=== PATIENT | female | born 1960 | race Caucasian/White ===

== ENCOUNTER 2023-10-08 09:23 | Day surgery (SDC) | payer BC ==
[2023-10-08] MEDS ORDERED: Depo-Medrol 40 MG/ML IM ONE (09:24)
[2023-10-08] MEDS ORDERED: BUPIVACAINE 0.5% VIAL IJ ONE (09:24)
[2023-10-08] MEDS ORDERED: DIPRIVAN 200 MG/20 ML IV ONE (11:28)
--- NOTE | 2023-10-08 12:07 | XRAY ---
Indication: Bilateral L3-L5 MBB. Intraoperative fluoroscopy provided for 33 seconds. Single digital spot image submitted for interpretation demonstrates posterior needle tips projecting over the expected left and right L3-L5 nerve roots. Correlate with intraoperative findings/report.
--- NOTE | 2023-10-08 12:27 | XRAY ---
33 seconds of fluoroscopy was used in surgery for a bilateral L3-L5 MBB.
[2023-10-08] MEDS ORDERED: Lactated Ringers 1,000 ML IV ONE (14:59)
== END 2023-10-08 11:56 | disposition home or self-care (01) ==
LOC: SDC-PAIN 09:23
PROVIDERS: ATTEND Psychiatry & Neurology Pain Medicine
DX: M47.816 Spondylosis without myelopathy or radiculopathy, lumbar region (principal)
CPT/HCPCS: 64493; 64494; 72020; 77002; J1030; J2704

== ENCOUNTER 2023-10-29 09:55 | Observation (INO) | payer BC ==
--- NOTE | 2023-10-29 10:30 | ERPHSYRPT ---
- History of Present Illness Time Seen by Provider: 10/29/23 10:24 Historian: patient Patient Subjective Stated Complaint: Pt c/o of off and on chest pain since Triage Nursing Assessment: Pt brought self to the ER, hypertensive, rates chest pressure as 3/10, has aortic insufficiency and is having an echo on Friday, pain is in the medial chest, denies N&V, did have pain in the left shoulder the other day but she had been doing a lot of work so she thought it was due to that, pulses normal, skin n/w/d, no difficulty breathing, doesn't appear to be in any distress Physician History: Patient is 63-year-old female presents to our ED as a referral from [facility] for evaluation of chest pain. Patient reports she has been experiencing significant chest pain intermittently over the past 6 days. Patient rates her pain 6 out of 10. Pain is substernal tends to radiate to the left shoulder. No associated nausea vomiting or diaphoresis. Patient reports that she has an extensive cardiac family history. No trauma no fever. Symptoms are moderate in intensity. No specific worsening or improving factors. Patient voices no other complaints or concerns at this time. Portions of this note were created with voice recognition technology. There may be grammatical, spelling, punctuation or sound alike errors Timing/Duration: day(s) (6 days) Activities at Onset: none Quality: aching Location: substernal Chest Pain Radiation: arm (Left shoulder) Severity of Pain-Max: moderate Severity of Pain-Current: mild Modifying Factors: Improves With: nothing Associated Symptoms: denies symptoms Prior Chest Pain/Cardiac Workup: no prior chest pain Nitro Today/Relief: no nitro taken today Aspirin Treatment Today: no aspirin today Allergies/Adverse Reactions: atorvastatin [From Lipitor] Allergy (Verified 10/29/23 10:11) doxycycline Allergy (Verified 10/29/23 10:11) Home Medications: Celecoxib 200 mg PO BID 10/29/23 [History] Hydrocortisone [Cortef] 5 mg PO UD 10/29/23 [History] Levothyroxine Sodium 75 mcg PO DAILY 10/29/23 [History] Liothyronine Sodium 25 mcg PO DAILY 10/29/23 [History] Lisinopril 5 mg [Zestril 5 MG] 5 mg PO DAILY 10/29/23 [History] Omeprazole 40 mg PO BID 10/29/23 [History] Onabotulinumtoxina [Botox] 100 unit IJ UD 10/29/23 [History] Oxcarbazepine [Oxtellar Xr] 600 mg PO DAILY 10/29/23 [History] Propranolol HCl [Propranolol HCl ER] 60 mg PO DAILY 10/29/23 [History] Rimegepant Sulfate [Nurtec Odt] 75 mg PO UD 10/29/23 [History] Solriamfetol HCl [Sunosi] 150 mg PO DAILY 10/29/23 [History] Temazepam 30 mg PO DAILY 10/29/23 [History] levETIRAcetam [Levetiracetam] 1,000 mg PO BID 10/29/23 [History] methocarbamoL [Methocarbamol] 750 mg PO TID 10/29/23 [History] Hx Influenza Vaccination/Date Given: No Hx Pneumococcal Vaccination/Date Given: No Travel Risk - International Travel Have you traveled outside of the country in past 3 weeks: No - Coronavirus Screening Are you exhibiting any of the following symptoms?: No Close contact with a COVID-19 positive Pt in past 14-21 Days: No - Vaccine Status Have you recieved a Covid-19 vaccination: Yes 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 - Vaccination Dates Date of 2cond Vaccination (if applicable): 2020 - Review of Systems Constitutional: No Symptoms, No Fever, No Chills Eyes: No Symptoms Ears, Nose, & Throat: No Symptoms Respiratory: No Symptoms, No Cough, No Dyspnea Cardiac: No Symptoms, No Chest Pain, No Edema, No Syncope Abdominal/Gastrointestinal: No Symptoms, No Abdominal Pain, No Nausea, No Vomiting, No Diarrhea Genitourinary Symptoms: No Symptoms, No Dysuria Musculoskeletal: No Symptoms, No Back Pain, No Neck Pain Skin: No Symptoms, No Rash Neurological: No Symptoms, No Dizziness, No Focal Weakness, No Sensory Changes Psychological: No Symptoms Endocrine: No Symptoms Hematologic/Lymphatic: No Symptoms Immunological/Allergic: No Symptoms All Other Systems: Reviewed and Negative - Past Medical History Pertinent Past Medical History: Yes Neurological History: Migraines, Seizures Cardiac History: No Pertinent History Respiratory History: Sleep Apnea Endocrine Medical History: Other Musculoskeletal History: Degenerative Disk Disease, Osteoarthritis Other Medical History: 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 gall bladder removed 2020. adrenal insufficiency, hx of bladder sx, Right Carpal tunnel decompression, Left thumb tendon release., graves disease, lyme disease - Past Surgical History Past Surgical History: Yes Gastrointestinal: Cholecystectomy Musculoskeletal: Orthopedic Surgery Other Surgical History: ulnar nerve/carpal tunnel/trigger finger release - Social History Smoking Status: Never smoker Exposure to second hand smoke: No Drug Use: none Patient Lives Alone: No - Nursing Vital Signs Nursing Vital Signs: Initial Vital Signs Temperature 97.5 F 10/29/23 09:59 Pulse Rate 78 10/29/23 09:59 Respiratory Rate 20 10/29/23 09:59 Blood Pressure 194/80 10/29/23 09:59 O2 Sat by Pulse Oximetry 97 10/29/23 09:59 Pain Scale Pain Intensity 3 - Physical Exam General Appearance: no apparent distress, alert Eye Exam: PERRL/EOMI, eyes nml inspection Ears, Nose, Throat Exam: normal ENT inspection, TMs normal, pharynx normal, moist mucous membranes Neck Exam: normal inspection, non-tender, supple, full range of motion Respiratory Exam: normal breath sounds, lungs clear, airway intact, No respiratory distress Cardiovascular Exam: regular rate/rhythm, normal heart sounds, normal peripheral pulses Gastrointestinal/Abdomen Exam: soft, No tenderness, No mass Back Exam: normal inspection, No CVA tenderness, No vertebral tenderness Extremity Exam: normal inspection, normal range of motion Neurologic Exam: alert, oriented x 3, cooperative, normal mood/affect, sensation nml, No motor deficits Skin Exam: normal color, warm, dry Lymphatic Exam: No adenopathy SpO2 Interpretation: normal SpO2: 97 O2 Delivery: Room Air - Course Nursing assessment & vital signs reviewed: Yes EKG Interpreted by Me: RATE (73), Sinus Rhythm, NORMAL AXIS, NORMAL INTERVALS - Radiology Exams Chest X-ray Interpretation: Interpreted by me (No acute findings) Ordered Tests: Active Orders 24 hr Category Date Time Status Director Of Email Marketing STAT Care 10/29/23 10:26 Active EKG-ER Only STAT Care 10/29/23 10:26 Active IV Insertion STAT Care 10/29/23 10:26 Active Pulse Oximetry (ED) STAT Care 10/29/23 10:26 Active CHEST 1 VIEW (PORTABLE) Stat Exams 10/29/23 12:21 Completed CBC W DIFF Stat Lab 10/29/23 10:30 Completed CMP Stat Lab 10/29/23 10:30 Completed D-DIMER QUANTITATIVE Stat Lab 10/29/23 10:30 Completed TROPONIN Q4H Lab 10/29/23 10:30 Completed TROPONIN Q4H Lab 10/29/23 14:30 Ordered TROPONIN Q4H Lab 10/29/23 18:30 Ordered Transfer Order Routine Transfer 10/29/23 Ordered Medication Summary Discontinued Medications Generic Name Dose Route Start Last Admin Trade Name Freq PRN Reason Stop Dose Admin Aspirin 324 mg 10/29/23 10:31 10/29/23 10:47 Aspirin 81 Mg Tab.Chew PO 10/29/23 10:32 324 mg STAT ONE Administration Aspirin Confirm 10/29/23 10:44 Aspirin 81 Mg Tab.Chew Administered 10/29/23 10:45 Dose 324 mg .ROUTE .STK-MED ONE Nitroglycerin 1 gm 10/29/23 10:31 10/29/23 10:47 Nitroglycerin 1 Gm Packet TOP 10/29/23 10:32 1 gm STAT ONE Administration Nitroglycerin Confirm 10/29/23 10:44 Nitroglycerin 1 Gm Packet Administered 10/29/23 10:45 Dose 1 gm .ROUTE .STK-MED ONE Ondansetron HCl 4 mg 10/29/23 11:17 10/29/23 11:19 Ondansetron Hcl 4 Mg/2 Ml Vial IV 10/29/23 11:18 4 mg STAT ONE Administration Ondansetron HCl Confirm 10/29/23 11:18 Ondansetron Hcl 4 Mg/2 Ml Vial Administered 10/29/23 11:19 Dose 4 mg .ROUTE .STK-MED ONE Lab/Rad Data: Laboratory Result Diagrams 10/29/23 10:30 10/29/23 10:30 Laboratory Results 10/29/23 10/29/23 10/29/23 Range/Units 10:30 10:30 10:30 WBC (4.0-10.5) x10^3/uL RBC (4.1-5.4) x10^6/uL Hgb (12.0-16.0) g/dL Hct (35-47) % MCV (78-100) fL MCH (26-32) pg MCHC (32-36) g/dL RDW (11.5-14.0) % Plt Count (150-450) x10^3/uL MPV (7.5-11.0) fL Gran % (36.0-66.0) % Immature Gran % (Auto) (0.00-0.4) % Nucleat RBC Rel Count (0.00-0.1) % Eos # (Auto) (0-0.5) x10^3/uL Immature Gran # (Auto) (0.00-0.03) x10^3u/L Absolute Lymphs (auto) (1.0-4.6) x10^3/uL Absolute Monos (auto) (0.0-1.3) x10^3/uL Absolute Nucleated RBC (0.00-0.01) x10^3u/L Lymphocytes % (24.0-44.0) % Monocytes % (0.0-12.0) % Eosinophils % (0.00-5.0) % Basophils % (0.0-0.4) % Absolute Granulocytes (1.4-6.9) x10^3/uL Basophils # (0-0.4) x10^3/uL D-Dimer 0.29 (0.0-0.50) mg/L Sodium 140 (137-145) mmol/L Potassium 3.8 (3.5-5.1) mmol/L Chloride 107 (98-107) mmol/L Carbon Dioxide 27 (22-30) mmol/L Anion Gap 9.9 (5-15) MEQ/L BUN 12 (7-17) mg/dL Creatinine 0.64 (0.52-1.04) mg/dL Estimated GFR 100.5 ML/MIN Glucose 94 (74-106) mg/dL Calcium 9.0 (8.4-10.2) mg/dL Total Bilirubin 0.30 (0.2-1.3) mg/dL AST 26 (14-36) U/L ALT 25 (0-35) U/L Alkaline Phosphatase 127 H (38-126) U/L Troponin I < 0.012 (0.000-0.034) ng/mL Serum Total Protein 7.0 (6.3-8.2) g/dL Albumin 3.9 (3.5-5.0) g/dL 12// Range/Units 10:30 WBC 5.2 (4.0-10.5) x10^3/uL RBC 4.74 (4.1-5.4) x10^6/uL Hgb 13.4 (12.0-16.0) g/dL Hct 42.2 (35-47) % MCV 89.0 (78-100) fL MCH 28.3 (26-32) pg MCHC 31.8 L (32-36) g/dL RDW 12.8 (11.5-14.0) % Plt Count 121 L (150-450) x10^3/uL MPV 12.9 H (7.5-11.0) fL Gran % 58.7 (36.0-66.0) % Immature Gran % (Auto) 0.4 (0.00-0.4) % Nucleat RBC Rel Count 0.0 (0.00-0.1) % Eos # (Auto) 0.08 (0-0.5) x10^3/uL Immature Gran # (Auto) 0.02 (0.00-0.03) x10^3u/L Absolute Lymphs (auto) 1.56 (1.0-4.6) x10^3/uL Absolute Monos (auto) 0.46 (0.0-1.3) x10^3/uL Absolute Nucleated RBC 0.00 (0.00-0.01) x10^3u/L Lymphocytes % 30.1 (24.0-44.0) % Monocytes % 8.9 (0.0-12.0) % Eosinophils % 1.5 (0.00-5.0) % Basophils % 0.4 (0.0-0.4) % Absolute Granulocytes 3.05 (1.4-6.9) x10^3/uL Basophils # 0.02 (0-0.4) x10^3/uL D-Dimer (0.0-0.50) mg/L Sodium (137-145) mmol/L Potassium (3.5-5.1) mmol/L Chloride (98-107) mmol/L Carbon Dioxide (22-30) mmol/L Anion Gap (5-15) MEQ/L BUN (7-17) mg/dL Creatinine (0.52-1.04) mg/dL Estimated GFR ML/MIN Glucose (74-106) mg/dL Calcium (8.4-10.2) mg/dL Total Bilirubin (0.2-1.3) mg/dL AST (14-36) U/L ALT (0-35) U/L Alkaline Phosphatase (38-126) U/L Troponin I (0.000-0.034) ng/mL Serum Total Protein (6.3-8.2) g/dL Albumin (3.5-5.0) g/dL - Progress Progress: improved Air Movement: good Progress Note: Case discussed with DrDarius: At 12:[address] Quispe Accepts [facility]. Plan of care discussed with patient. She agrees to admission to [facility] for further evaluation and treatment. Heart score 4 Portions of this note were created with voice recognition technology. There may be grammatical, spelling, punctuation or sound alike errors 10/29/23 13:05 63-year-old female presents to our ED for evaluation of chest pain. Patient has aortic insufficiency. Initial workup negative. D-dimer negative. CBC CMP nonremarkable. EKG normal sinus rhythm. Patient received aspirin and nitro in our ED. Case discussed with who accepts admission to observation. Portions of this note were created with voice recognition technology. There may be grammatical, spelling, punctuation or sound alike errors Complexity problem addressed is moderate acute complicated No critical care time Complex of data reviewed and analyzed is extensive. Test ordered test reviewed. Results analyzed and correlated clinically. Management discussed with hospitalist Dr. Quispe who accepts admission at 12:58 PM. Risk of complication and or risk of morbidity/mortality of patient management is high. Patient requires hospitalization for further evaluation and treatment. Vital stable. Time spent to admit patient is approximately 15 minutes. Plan of care established for shared decision making. No social determinants of health present impede follow-up. Portions of this note were created with voice recognition technology. There may be grammatical, spelling, punctuation or sound alike errors 10/29/23 13:07 10/29/23 13:09 Blood Culture(s) Obtained: No Antibiotics given: No Discussed with : Other (Brittaney) Will see patient in: hospital (observation) Counseled pt/family regarding: lab results, diagnosis, rad results - Departure Departure Disposition: Observation Clinical Impression: Chest pain, ACS (acute coronary syndrome) Condition: Stable Critical Care Time: No Referrals: VIGNESH BONE [Primary Care Provider] - Follow up/PCP as directed
[2023-10-29] MEDS ORDERED: NITRO-BID 2% UD PACKETS TOP ONE (10:31)
[2023-10-29] MEDS ORDERED: BABY ASPIRIN 81 MG CHEW PO ONE (10:31)
[2023-10-29] MEDS ORDERED: NITRO-BID 2% UD PACKETS ONE (10:44)
[2023-10-29] MEDS ORDERED: BABY ASPIRIN 81 MG CHEW ONE (10:44)
[2023-10-29 10:51] LABS: Absolute Neutrophil Ct (ANC) 3.05 x10^3/uL (1.4-6.9); BASOPHIL % 0.4 % (0.0-0.4); Basophil (Absolute #) 0.02 x10^3/uL (0-0.4); Eosinophil % 1.5 % (0.00-5.0); Eosinophil (Absolute #) 0.08 x10^3/uL (0-0.5); Hematocrit 42.2 % (35-47); Hemoglobin 13.4 g/dL (12.0-16.0); IMMATURE GRAN # 0.02 x10^3u/L (0.00-0.03); IMMATURE GRAN % 0.4 % (0.00-0.4); Lymphocyte (Absolute #) 1.56 x10^3/uL (1.0-4.6); Lymphocytes % 30.1 % (24.0-44.0); Mean Corpuscular Hemoglobin 28.3 pg (26-32); Mean Corpuscular Hgb Concent. 31.8 g/dL (32-36); Mean Platelet Volume 12.9 fL (7.5-11.0); Monocyte (Absolute #) 0.46 x10^3/uL (0.0-1.3); Monocytes % 8.9 % (0.0-12.0); Neutrophil % 58.7 % (36.0-66.0); Platelet Count 121 x10^3/uL (150-450); Red Blood Count 4.74 x10^6/uL (4.1-5.4); Red Cell Distribution Width 12.8 % (11.5-14.0); White Blood Count 5.2 x10^3/uL (4.0-10.5)
[2023-10-29 11:06] LABS: ALBUMIN 3.9 g/dL (3.5-5.0); ANION GAP 9.9 MEQ/L (5-15); BILIRUBIN,TOTAL 0.3 mg/dL (0.2-1.3); Creatinine 1 0.64 mg/dL (0.52-1.04); EST GLOMERULAR FILTRATION RATE 100.5 ML/MIN; Potassium 3.8 mmol/L (3.5-5.1)
[2023-10-29] MEDS ORDERED: Zofran 4 MG/2 ML VIAL IV ONE (11:17)
[2023-10-29] MEDS ORDERED: Zofran 4 MG/2 ML VIAL ONE (11:18)
--- NOTE | 2023-10-29 12:51 | XRAY ---
Indication: Chest pain 1 week. Comparison: None Portable chest inflated and clear. Heart and mediastinal structures within normal limits. Bony thorax intact with osteopenia, mild degenerative changes, and lower cervical fusion hardware. Impression: Nonacute chest with chronic bony findings.
[2023-10-29 13:17] LABS: INFLUENZA A NEGATIVE (NEGATIVE); INFLUENZA B NEGATIVE (NEGATIVE); SARS-CoV-2 Xpert Express NEGATIVE (NEGATIVE)
[2023-10-29 13:23] LABS: RESPIRATORY SYNCTIAL VIRUS POSITIVE (NEGATIVE)
[2023-10-29] MEDS ORDERED: Zofran 4 MG/2 ML VIAL IV PRN (13:56)
[2023-10-29] MEDS ORDERED: Nitrostat 0.4 MG Tablet SL PRN (14:02)
--- NOTE | 2023-10-29 14:03 | PCM.HP ---
History of Present Illness - Chief Complaint Chief Complaint: Chest pain/ACS Date: 10/29/23 History of Present Illness: is a 63 year old female with a pmhx of aortic insufficiency (workup pending, echo scheduled for 10/31/23), migraines, seizures, DDD, OA, graves disease, lyme disease, and EMMETT who presented to ED 10/29/23 with complaints of chest pain and pressure. She reports that the pain started approximately six days ago. Pain is substernal with radiation to the left shoulder region last evening but not today. The pain has been intermittent over the past six days. She states the pain was constant last night but has been intermittent over the past six days normally lasting about 20 mins each episode. Prior to arrival pain was about 8/10, on arrival 5/10 and during interview pain has resolved. She describes the pain as pressure-like in characteristic, with no aggravating/relieving factors. She does report that she has been having flu-like symptoms since 10/26/23 with coughing, wheezing, chest tightness, sweats/chills. She feels that her coughing may have exacerbated her chest pain. Upon presentation, patient hypertensive with bp 194/80, otherwise vitals unremarkable. CXR with no cardiopulmonary processes. EKG NS with no ST eleva tion/deviations. Lab findings showing positive RSV, otherwise unremarkable. Ddimer is normal. Initial troponin is normal. Aspirin, nitro, and zofran given in ED. - Review of Systems Constitutional: Weakness Eyes: No Symptoms Ears, Nose, & Throat: Throat Pain Respiratory: Cough, Short Of Breath Cardiac: Chest Pain Abdominal/Gastrointestinal: Nausea Genitourinary Symptoms: No Symptoms Musculoskeletal: No Symptoms Skin: No Symptoms Neurological: No Symptoms Psychological: No Symptoms Endocrine: No Symptoms Hematologic/Lymphatic: No Symptoms Immunological/Allergic: No Symptoms Medications & Allergies Home Medications: Home Medication List Celecoxib 200 mg PO BID 10/29/23 [History Confirmed 10/29/23] Hydrocortisone [Cortef] 5 mg PO UD 10/29/23 [History Confirmed 10/29/23] Levothyroxine Sodium 75 mcg PO DAILY 10/29/23 [History Confirmed 10/29/23] Liothyronine Sodium 25 mcg PO DAILY 10/29/23 [History Confirmed 10/29/23] Lisinopril 5 mg [Zestril 5 MG] 5 mg PO DAILY 10/29/23 [History Confirmed 10/29/23] Omeprazole 40 mg PO BID 10/29/23 [History Confirmed 10/29/23] Onabotulinumtoxina [Botox] 100 unit IJ UD 10/29/23 [History Confirmed 10/29/23] Oxcarbazepine [Oxtellar Xr] 600 mg PO DAILY 10/29/23 [History Confirmed 10/29/23] Propranolol HCl [Propranolol HCl ER] 60 mg PO DAILY 10/29/23 [History Confirmed 10/29/23] Rimegepant Sulfate [Nurtec Odt] 75 mg PO UD 10/29/23 [History Confirmed 10/29/23] Solriamfetol HCl [Sunosi] 150 mg PO DAILY 10/29/23 [History Confirmed 10/29/23] Temazepam 30 mg PO DAILY 10/29/23 [History Confirmed 10/29/23] levETIRAcetam [Levetiracetam] 1,000 mg PO BID 10/29/23 [History Confirmed 10/29/23] methocarbamoL [Methocarbamol] 750 mg PO TID 10/29/23 [History Confirmed 10/29/23] Allergies/Adverse Reactions: Allergies Allergy/AdvReac Type Severity Reaction Status Date / Time atorvastatin [From Lipitor] Allergy Verified 10/29/23 10:11 doxycycline Allergy Verified 10/29/23 10:11 - Past Medical History Past Medical History: Yes Neurological History: Migraines, Seizures Cardiac History: No Pertinent History Respiratory History: Sleep Apnea Endocrine Medical History: Other Musculoskelatal History: Degenerative Disk Disease, Osteoarthritis Comment: 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 gall bladder removed 2020. adrenal insufficiency, hx of bladder sx, Right Carpal tunnel decompression, Left thumb tendon release., graves disease, lyme disease - Past Surgical History Past Surgical History: Yes GI Surgical History: Cholecystectomy Musculskeletal Surgical Hx: Orthopedic Surgery Other Surgical History: ulnar nerve/carpal tunnel/trigger finger release - Social History Smoking Status: Never smoker Exposure to second hand smoke: No Alcohol: None Drug Use: none - Physical Exam Vital Signs: Vital Signs - 24 hr Temp Pulse Resp BP BP Pulse Ox 10/29/23 13:15 97 10/29/23 13:00 81 18 146/78 93 L 10/29/23 12:30 78 17 140/73 95 10/29/23 12:00 80 12 146/82 95 10/29/23 11:30 80 13 155/91 10/29/23 11:00 75 13 153/93 95 10/29/23 10:50 98 10/29/23 10:30 78 17 165/110 96 10/29/23 10:01 80 16 194/80 97 10/29/23 09:59 97.5 F 78 20 194/80 97 General Appearance: no apparent distress Neurologic Exam: alert, oriented x 3, cooperative Eye Exam: PERRL/EOMI Ears, Nose, Throat Exam: normal ENT inspection Neck Exam: normal inspection Respiratory Exam: wheezing Cardiovascular Exam: regular rate/rhythm, normal heart sounds Gastrointestinal/Abdomen Exam: soft, normal bowel sounds Pelvic Exam: not done Rectal Exam: deferred Back Exam: normal inspection Extremity Exam: normal inspection Skin Exam: normal color Results - Labs Lab/Micro Results: Lab Results-Last 24 Hours 10/29/23 10/29/23 10/29/23 Range/Units 10:30 10:30 10:30 WBC 5.2 (4.0-10.5) x10^3/uL RBC 4.74 (4.1-5.4) x10^6/uL Hgb 13.4 (12.0-16.0) g/dL Hct 42.2 (35-47) % MCV 89.0 (78-100) fL MCH 28.3 (26-32) pg MCHC 31.8 L (32-36) g/dL RDW 12.8 (11.5-14.0) % Plt Count 121 L (150-450) x10^3/uL MPV 12.9 H (7.5-11.0) fL Gran % 58.7 (36.0-66.0) % Immature Gran % (Auto) 0.4 (0.00-0.4) % Nucleat RBC Rel Count 0.0 (0.00-0.1) % Eos # (Auto) 0.08 (0-0.5) x10^3/uL Immature Gran # (Auto) 0.02 (0.00-0.03) x10^3u/L Absolute Lymphs (auto) 1.56 (1.0-4.6) x10^3/uL Absolute Monos (auto) 0.46 (0.0-1.3) x10^3/uL Absolute Nucleated RBC 0.00 (0.00-0.01) x10^3u/L Lymphocytes % 30.1 (24.0-44.0) % Monocytes % 8.9 (0.0-12.0) % Eosinophils % 1.5 (0.00-5.0) % Basophils % 0.4 (0.0-0.4) % Absolute Granulocytes 3.05 (1.4-6.9) x10^3/uL Basophils # 0.02 (0-0.4) x10^3/uL D-Dimer 0.29 (0.0-0.50) mg/L Sodium 140 (137-145) mmol/L Potassium 3.8 (3.5-5.1) mmol/L Chloride 107 (98-107) mmol/L Carbon Dioxide 27 (22-30) mmol/L Anion Gap 9.9 (5-15) MEQ/L BUN 12 (7-17) mg/dL Creatinine 0.64 (0.52-1.04) mg/dL Estimated GFR 100.5 ML/MIN Glucose 94 (74-106) mg/dL Calcium 9.0 (8.4-10.2) mg/dL Total Bilirubin 0.30 (0.2-1.3) mg/dL AST 26 (14-36) U/L ALT 25 (0-35) U/L Alkaline Phosphatase 127 H (38-126) U/L Troponin I (0.000-0.034) ng/mL Serum Total Protein 7.0 (6.3-8.2) g/dL Albumin 3.9 (3.5-5.0) g/dL Influenza Type A Ag (NEGATIVE) Influenza Type B Ag (NEGATIVE) RSV (PCR) (NEGATIVE) SARS-CoV-2 (PCR) (NEGATIVE) 10/29/23 10/29/23 Range/Units 10:30 11:55 WBC (4.0-10.5) x10^3/uL RBC (4.1-5.4) x10^6/uL Hgb (12.0-16.0) g/dL Hct (35-47) % MCV (78-100) fL MCH (26-32) pg MCHC (32-36) g/dL RDW (11.5-14.0) % Plt Count (150-450) x10^3/uL MPV (7.5-11.0) fL Gran % (36.0-66.0) % Immature Gran % (Auto) (0.00-0.4) % Nucleat RBC Rel Count (0.00-0.1) % Eos # (Auto) (0-0.5) x10^3/uL Immature Gran # (Auto) (0.00-0.03) x10^3u/L Absolute Lymphs (auto) (1.0-4.6) x10^3/uL Absolute Monos (auto) (0.0-1.3) x10^3/uL Absolute Nucleated RBC (0.00-0.01) x10^3u/L Lymphocytes % (24.0-44.0) % Monocytes % (0.0-12.0) % Eosinophils % (0.00-5.0) % Basophils % (0.0-0.4) % Absolute Granulocytes (1.4-6.9) x10^3/uL Basophils # (0-0.4) x10^3/uL D-Dimer (0.0-0.50) mg/L Sodium (137-145) mmol/L Potassium (3.5-5.1) mmol/L Chloride (98-107) mmol/L Carbon Dioxide (22-30) mmol/L Anion Gap (5-15) MEQ/L BUN (7-17) mg/dL Creatinine (0.52-1.04) mg/dL Estimated GFR ML/MIN Glucose (74-106) mg/dL Calcium (8.4-10.2) mg/dL Total Bilirubin (0.2-1.3) mg/dL AST (14-36) U/L ALT (0-35) U/L Alkaline Phosphatase (38-126) U/L Troponin I < 0.012 (0.000-0.034) ng/mL Serum Total Protein (6.3-8.2) g/dL Albumin (3.5-5.0) g/dL Influenza Type A Ag NEGATIVE (NEGATIVE) Influenza Type B Ag NEGATIVE (NEGATIVE) RSV (PCR) POSITIVE (NEGATIVE) SARS-CoV-2 (PCR) NEGATIVE (NEGATIVE) - Radiology Impressions Radiology Exams & Impressions: Radiology Procedures Category Date Time Status CHEST 1 VIEW (PORTABLE) Stat Exams 10/29/23 12:21 Completed Assessment/Plan (1) RSV (acute bronchiolitis due to respiratory syncytial virus) Current Visit: Yes Status: Acute Assessment & Plan: -supportive therapies including anti-tussives, duonebs, supplemental oxygen for goal spo2 >92% (2) Chest pain Current Visit: Yes Status: Acute Assessment & Plan: --Cardiology consult unavailable, will consider transfer if appropriate, patient of Dr. Ortiz -Cardiac workup op pending for aortic insufficiency/aortic aneurysm per pt -2 gm Na diet -CXR demonstrates no acute cardiopulmonary disease -start ASA and NTG sublingual PRN -serial troponin and ECG -Echo in am -CBC, CMP, Mg, Phos, lipid panel, HgbA1c in am -continue appropriate baseline home medications -DVT prophylaxis-Lovenox 40 mg SQ daily Code(s): R07.9 - CHEST PAIN, UNSPECIFIED (3) Graves disease Current Visit: Yes Status: Acute Assessment & Plan: -Continue home medications -TSH Code(s): E05.00 - THYROTOXICOSIS W DIFFUSE GOITER W/O THYROTOXIC CRISIS (4) Migraines Current Visit: Yes Status: Acute Assessment & Plan: -noted, continue home medications Code(s): G43.909 - MIGRAINE, UNSP, NOT INTRACTABLE, WITHOUT STATUS MIGRAINOSUS (5) Hypertension Current Visit: Yes Status: Acute Assessment & Plan: -No prior history, add hydralazine for sbp >180 DBP > 100 Code(s): I10 - ESSENTIAL (PRIMARY) HYPERTENSION (6) Seizure disorder Current Visit: Yes Status: Acute Assessment & Plan: -Noted, adds complexity, sees Dr. Montano-Mast neurology on OP basis, will continue current home meds Code(s): G40.909 - EPILEPSY, UNSP, NOT INTRACTABLE, WITHOUT STATUS EPILEPTICUS
[2023-10-29] MEDS ORDERED: APRESOLINE 20 MG/ML INJ IV PRN (14:04)
[2023-10-29] MEDS ORDERED: HYDROCORTISONE 5 MG PO SCH (15:15)
[2023-10-29] MEDS ORDERED: NON-FORMULARY ITEM (Rimegepant Sulfate [Nurtec Odt] 75 MG Tab.Rapdis) PO PRN (15:15)
[2023-10-29 15:56] LABS: MAGNESIUM 2.2 mg/dL (1.6-2.3); TSH, 3RD Generation 0.043 mIU/L (0.47-4.68)
[2023-10-29] MEDS ORDERED: MEDICATION INTERVENTION MC SCH ×5 (16:00)
[2023-10-29] MEDS: ENOXAPARIN SODIUM SQ SCH (16:10)
[2023-10-29] MEDS: TYLENOL 325 MG PO PRN (16:11)
[2023-10-29] MEDS: Tessalon Perles 100 MG PO PRN (16:11)
--- NOTE | 2023-10-29 17:02 | XRAY ---
Indication: Chest pain. Aneurysm. Conventional contrast enhanced CTA chest performed using 80 cc Isovue 370 contrast. 2-D sagittal and coronal reformatted images obtained. Additional 3-D reformatted images obtained using a separate workstation. Comparison: None Heart not enlarged. Aorta is normal in course and caliber without arteriosclerotic disease, aneurysm, or dissection. No pathologic mediastinal/hilar lymphadenopathy. Small hiatal hernia. Lungs inflated with minimal posterior left lower lobe peripheral airspace disease. No suspicious pulmonary mass/nodule, effusion, or pneumothorax. Bony thorax intact with minimal degenerative changes throughout the spine. Limited upper abdomen demonstrates cholecystectomy. Impression: 1. Normal CTA chest with contrast exam. 2. Minimal left lower lobe patchy airspace disease and incidental small hiatal hernia.
[2023-10-29 17:27] LABS: Risk Ratio 3.8
[2023-10-29] MEDS ORDERED: NON-FORMULARY ITEM PO PRN (21:08)
[2023-10-29] MEDS: Protonix 40MG Tablet PO SCH (21:12)
[2023-10-29] MEDS: Robaxin PO SCH (21:17)
[2023-10-29] MEDS ORDERED: MAG-OX 400 ONE (21:37)
[2023-10-29] MEDS ORDERED: HYDROCORTISONE PO SCH (22:00)
[2023-10-29] MEDS ORDERED: NON-FORMULARY ITEM (Omeprazole [Omeprazole] 40 MG Capsule.Dr) PO SCH (22:00)
[2023-10-29] MEDS ORDERED: COLESEVELAM HCL 625 MG PO SCH (22:00)
[2023-10-29] MEDS ORDERED: NON-FORMULARY ITEM (Temazepam [Temazepam] 30 MG Capsule) PO SCH (22:00)
[2023-10-29] MEDS ORDERED: Restoril 15 MG PO SCH (22:00)
[2023-10-29] MEDS ORDERED: NON-FORMULARY ITEM (Magnesium [Magnesium] 200 MG Tablet) PO SCH (22:00)
[2023-10-29] MEDS ORDERED: METHOCARBAMOL 750 MG PO SCH (22:00)
[2023-10-29] MEDS ORDERED: KEPPRA PO SCH (22:00)
[2023-10-29] MEDS ORDERED: OXCARBAZEPINE 600 MG PO SCH (22:00)
[2023-10-29] MEDS ORDERED: Zestril 5 MG PO SCH (22:00)
[2023-10-29] MEDS ORDERED: LEVETIRACETAM 1000 MG PO SCH (22:00)
[2023-10-29] MEDS ORDERED: MAG-OX 400 PO SCH (22:00)
[2023-10-30] MEDS: Tessalon Perles 100 MG PO PRN ×2 (00:06→09:33)
[2023-10-30] MEDS: TYLENOL 325 MG PO PRN ×2 (00:06→09:32)
[2023-10-30 04:23] LABS: Hemoglobin 13.6 g/dL (12.0-16.0); Mean Cell Volume 89.4 fL (78-100); Mean Corpuscular Hemoglobin 28.9 pg (26-32); Mean Corpuscular Hgb Concent. 32.4 g/dL (32-36); Mean Platelet Volume 12.4 fL (7.5-11.0); Platelet Count 116 x10^3/uL (150-450); Red Cell Distribution Width 12.7 % (11.5-14.0)
[2023-10-30 04:39] LABS: ALBUMIN 3.9 g/dL (3.5-5.0); ANION GAP 8.7 MEQ/L (5-15); BILIRUBIN,TOTAL 0.5 mg/dL (0.2-1.3); Creatinine 1 0.7 mg/dL (0.52-1.04); EST GLOMERULAR FILTRATION RATE 98.3 ML/MIN; MAGNESIUM 2.2 mg/dL (1.6-2.3); Total Protein 6.9 g/dL (6.3-8.2)
--- NOTE | 2023-10-30 05:16 | PCM.NOTE ---
Date and Time: 10/30/23 0515 Subjective Assessment: HPI: is a 63 year old female with a pmhx of aortic insufficiency (workup pending, echo scheduled for 10/31/23), migraines, seizures, DDD, OA, graves disease, lyme disease, and EMMETT who presented to ED 10/29/23 with complaints of chest pain and pressure. She reports that the pain started approximately six days ago. Pain is substernal with radiation to the left shoulder region last evening but not today. The pain has been intermittent over the past six days. She states the pain was constant last night but has been intermittent over the past six days normally lasting about 20 mins each episode. Prior to arrival pain was about 8/10, on arrival 5/10 and during interview pain has resolved. She describes the pain as pressure-like in characteristic, with no aggravating/relieving factors. She does report that she has been having flu-like symptoms since 10/26/23 with coughing, wheezing, chest tightness, sweats/chills. She feels that her coughing may have exacerbated her chest pain. Upon presentation, patient hypertensive with bp 194/80, otherwise vitals unremarkable. CXR with no cardiopulmonary processes. EKG NS with no ST elevation/deviations. Lab findings showing positive RSV, otherwise unremarkable. Ddimer is normal. Initial troponin is normal. Aspirin, nitro, and zofran given in ED. 10/30/23: OBJECTIVE DATA Vital Signs: Vital Signs - 24 hr Temp Pulse Resp BP BP Pulse Ox 10/30/23 04:00 97.8 F 88 18 140/74 97 10/30/23 00:00 98.1 F 85 20 156/77 97 10/29/23 19:56 98.0 F 79 20 132/69 96 10/29/23 16:00 98.0 F 78 133/71 10/29/23 15:16 98.0 F 80 18 151/75 96 10/29/23 13:46 78 18 96 10/29/23 13:15 97 10/29/23 13:00 81 18 146/78 93 L 10/29/23 12:30 78 17 140/73 95 10/29/23 12:00 80 12 146/82 95 10/29/23 11:30 80 13 155/91 10/29/23 11:00 75 13 153/93 95 10/29/23 10:50 98 10/29/23 10:30 78 17 165/110 96 10/29/23 10:01 80 16 194/80 97 10/29/23 09:59 97.5 F 78 20 194/80 97 Pain Assessment - Last Documented Pain Intensity 6 Pain Scale Used 0-10 Pain Scale Intake and Output: Intake & Output 10/27/23 10/28/23 10/29/23 10/30/23 11:59 11:59 11:59 11:59 Intake Total 240 Balance 240 Weight 94.347 kg 94.4 kg Lab Results: Lab Results-Last 24 Hours 10/29/23 10/29/23 10/29/23 Range/Units 10:30 10:30 10:30 WBC 5.2 (4.0-10.5) x10^3/uL RBC 4.74 (4.1-5.4) x10^6/uL Hgb 13.4 (12.0-16.0) g/dL Hct 42.2 (35-47) % MCV 89.0 (78-100) fL MCH 28.3 (26-32) pg MCHC 31.8 L (32-36) g/dL RDW 12.8 (11.5-14.0) % Plt Count 121 L (150-450) x10^3/uL MPV 12.9 H (7.5-11.0) fL Gran % 58.7 (36.0-66.0) % Immature Gran % (Auto) 0.4 (0.00-0.4) % Nucleat RBC Rel Count 0.0 (0.00-0.1) % Eos # (Auto) 0.08 (0-0.5) x10^3/uL Immature Gran # (Auto) 0.02 (0.00-0.03) x10^3u/L Absolute Lymphs (auto) 1.56 (1.0-4.6) x10^3/uL Absolute Monos (auto) 0.46 (0.0-1.3) x10^3/uL Absolute Nucleated RBC 0.00 (0.00-0.01) x10^3u/L Lymphocytes % 30.1 (24.0-44.0) % Monocytes % 8.9 (0.0-12.0) % Eosinophils % 1.5 (0.00-5.0) % Basophils % 0.4 (0.0-0.4) % Absolute Granulocytes 3.05 (1.4-6.9) x10^3/uL Basophils # 0.02 (0-0.4) x10^3/uL D-Dimer 0.29 (0.0-0.50) mg/L Sodium 140 (137-145) mmol/L Potassium 3.8 (3.5-5.1) mmol/L Chloride 107 (98-107) mmol/L Carbon Dioxide 27 (22-30) mmol/L Anion Gap 9.9 (5-15) MEQ/L BUN 12 (7-17) mg/dL Creatinine 0.64 (0.52-1.04) mg/dL Estimated GFR 100.5 ML/MIN Glucose 94 (74-106) mg/dL Hemoglobin A1c (4.5-6.0) % Calcium 9.0 (8.4-10.2) mg/dL Magnesium (1.6-2.3) mg/dL Total Bilirubin 0.30 (0.2-1.3) mg/dL AST 26 (14-36) U/L ALT 25 (0-35) U/L Alkaline Phosphatase 127 H (38-126) U/L Troponin I (0.000-0.034) ng/mL Serum Total Protein 7.0 (6.3-8.2) g/dL Albumin 3.9 (3.5-5.0) g/dL Triglycerides (30-150) mg/dL Cholesterol (50-200) mg/dL LDL Cholesterol (30-100) mg/dL HDL Cholesterol (40-60) mg/dL Heart Disease Risk Ratio Free T4 (0.78-2.19) ng/dL TSH 3rd Generation (0.47-4.68) mIU/L Influenza Type A Ag (NEGATIVE) Influenza Type B Ag (NEGATIVE) RSV (PCR) (NEGATIVE) SARS-CoV-2 (PCR) (NEGATIVE) 10/29/23 10/29/23 10/29/23 Range/Units 10:30 10:30 11:55 WBC (4.0-10.5) x10^3/uL RBC (4.1-5.4) x10^6/uL Hgb (12.0-16.0) g/dL Hct (35-47) % MCV (78-100) fL MCH (26-32) pg MCHC (32-36) g/dL RDW (11.5-14.0) % Plt Count (150-450) x10^3/uL MPV (7.5-11.0) fL Gran % (36.0-66.0) % Immature Gran % (Auto) (0.00-0.4) % Nucleat RBC Rel Count (0.00-0.1) % Eos # (Auto) (0-0.5) x10^3/uL Immature Gran # (Auto) (0.00-0.03) x10^3u/L Absolute Lymphs (auto) (1.0-4.6) x10^3/uL Absolute Monos (auto) (0.0-1.3) x10^3/uL Absolute Nucleated RBC (0.00-0.01) x10^3u/L Lymphocytes % (24.0-44.0) % Monocytes % (0.0-12.0) % Eosinophils % (0.00-5.0) % Basophils % (0.0-0.4) % Absolute Granulocytes (1.4-6.9) x10^3/uL Basophils # (0-0.4) x10^3/uL D-Dimer (0.0-0.50) mg/L Sodium (137-145) mmol/L Potassium (3.5-5.1) mmol/L Chloride (98-107) mmol/L Carbon Dioxide (22-30) mmol/L Anion Gap (5-15) MEQ/L BUN (7-17) mg/dL Creatinine (0.52-1.04) mg/dL Estimated GFR ML/MIN Glucose (74-106) mg/dL Hemoglobin A1c 5.67 (4.5-6.0) % Calcium (8.4-10.2) mg/dL Magnesium (1.6-2.3) mg/dL Total Bilirubin (0.2-1.3) mg/dL AST (14-36) U/L ALT (0-35) U/L Alkaline Phosphatase (38-126) U/L Troponin I < 0.012 (0.000-0.034) ng/mL Serum Total Protein (6.3-8.2) g/dL Albumin (3.5-5.0) g/dL Triglycerides (30-150) mg/dL Cholesterol (50-200) mg/dL LDL Cholesterol (30-100) mg/dL HDL Cholesterol (40-60) mg/dL Heart Disease Risk Ratio Free T4 (0.78-2.19) ng/dL TSH 3rd Generation (0.47-4.68) mIU/L Influenza Type A Ag NEGATIVE (NEGATIVE) Influenza Type B Ag NEGATIVE (NEGATIVE) RSV (PCR) POSITIVE (NEGATIVE) SARS-CoV-2 (PCR) NEGATIVE (NEGATIVE) 10/29/23 10/29/23 10/29/23 Range/Units 13:55 14:00 19:15 WBC (4.0-10.5) x10^3/uL RBC (4.1-5.4) x10^6/uL Hgb (12.0-16.0) g/dL Hct (35-47) % MCV (78-100) fL MCH (26-32) pg MCHC (32-36) g/dL RDW (11.5-14.0) % Plt Count (150-450) x10^3/uL MPV (7.5-11.0) fL Gran % (36.0-66.0) % Immature Gran % (Auto) (0.00-0.4) % Nucleat RBC Rel Count (0.00-0.1) % Eos # (Auto) (0-0.5) x10^3/uL Immature Gran # (Auto) (0.00-0.03) x10^3u/L Absolute Lymphs (auto) (1.0-4.6) x10^3/uL Absolute Monos (auto) (0.0-1.3) x10^3/uL Absolute Nucleated RBC (0.00-0.01) x10^3u/L Lymphocytes % (24.0-44.0) % Monocytes % (0.0-12.0) % Eosinophils % (0.00-5.0) % Basophils % (0.0-0.4) % Absolute Granulocytes (1.4-6.9) x10^3/uL Basophils # (0-0.4) x10^3/uL D-Dimer (0.0-0.50) mg/L Sodium (137-145) mmol/L Potassium (3.5-5.1) mmol/L Chloride (98-107) mmol/L Carbon Dioxide (22-30) mmol/L Anion Gap (5-15) MEQ/L BUN (7-17) mg/dL Creatinine (0.52-1.04) mg/dL Estimated GFR ML/MIN Glucose (74-106) mg/dL Hemoglobin A1c (4.5-6.0) % Calcium (8.4-10.2) mg/dL Magnesium 2.2 (1.6-2.3) mg/dL Total Bilirubin (0.2-1.3) mg/dL AST (14-36) U/L ALT (0-35) U/L Alkaline Phosphatase (38-126) U/L Troponin I < 0.012 < 0.012 (0.000-0.034) ng/mL Serum Total Protein (6.3-8.2) g/dL Albumin (3.5-5.0) g/dL Triglycerides (30-150) mg/dL Cholesterol (50-200) mg/dL LDL Cholesterol (30-100) mg/dL HDL Cholesterol (40-60) mg/dL Heart Disease Risk Ratio Free T4 (0.78-2.19) ng/dL TSH 3rd Generation 0.043 L (0.47-4.68) mIU/L Influenza Type A Ag (NEGATIVE) Influenza Type B Ag (NEGATIVE) RSV (PCR) (NEGATIVE) SARS-CoV-2 (PCR) (NEGATIVE) 10/29/23 10/30/23 10/30/23 Range/Units Unknown 04:05 04:05 WBC 4.0 (4.0-10.5) x10^3/uL RBC 4.70 (4.1-5.4) x10^6/uL Hgb 13.6 (12.0-16.0) g/dL Hct 42.0 (35-47) % MCV 89.4 (78-100) fL MCH 28.9 (26-32) pg MCHC 32.4 (32-36) g/dL RDW 12.7 (11.5-14.0) % Plt Count 116 L (150-450) x10^3/uL MPV 12.4 H (7.5-11.0) fL Gran % (36.0-66.0) % Immature Gran % (Auto) (0.00-0.4) % Nucleat RBC Rel Count (0.00-0.1) % Eos # (Auto) (0-0.5) x10^3/uL Immature Gran # (Auto) (0.00-0.03) x10^3u/L Absolute Lymphs (auto) (1.0-4.6) x10^3/uL Absolute Monos (auto) (0.0-1.3) x10^3/uL Absolute Nucleated RBC (0.00-0.01) x10^3u/L Lymphocytes % (24.0-44.0) % Monocytes % (0.0-12.0) % Eosinophils % (0.00-5.0) % Basophils % (0.0-0.4) % Absolute Granulocytes (1.4-6.9) x10^3/uL Basophils # (0-0.4) x10^3/uL D-Dimer (0.0-0.50) mg/L Sodium 136 L (137-145) mmol/L Potassium 4.0 (3.5-5.1) mmol/L Chloride 105 (98-107) mmol/L Carbon Dioxide 27 (22-30) mmol/L Anion Gap 8.7 (5-15) MEQ/L BUN 11 (7-17) mg/dL Creatinine 0.70 (0.52-1.04) mg/dL Estimated GFR 98.3 ML/MIN Glucose 102 (74-106) mg/dL Hemoglobin A1c (4.5-6.0) % Calcium 9.0 (8.4-10.2) mg/dL Magnesium 2.2 (1.6-2.3) mg/dL Total Bilirubin 0.50 (0.2-1.3) mg/dL AST 27 (14-36) U/L ALT 27 (0-35) U/L Alkaline Phosphatase 124 (38-126) U/L Troponin I (0.000-0.034) ng/mL Serum Total Protein 6.9 (6.3-8.2) g/dL Albumin 3.9 (3.5-5.0) g/dL Triglycerides 184 H (30-150) mg/dL Cholesterol 232 H (50-200) mg/dL LDL Cholesterol 133 H (30-100) mg/dL HDL Cholesterol 61 H (40-60) mg/dL Heart Disease Risk Ratio 3.8 Free T4 (0.78-2.19) ng/dL TSH 3rd Generation (0.47-4.68) mIU/L Influenza Type A Ag (NEGATIVE) Influenza Type B Ag (NEGATIVE) RSV (PCR) (NEGATIVE) SARS-CoV-2 (PCR) (NEGATIVE) 10/30/23 10/30/23 10/30/23 Range/Units 04:05 04:05 04:05 WBC (4.0-10.5) x10^3/uL RBC (4.1-5.4) x10^6/uL Hgb (12.0-16.0) g/dL Hct (35-47) % MCV (78-100) fL MCH (26-32) pg MCHC (32-36) g/dL RDW (11.5-14.0) % Plt Count (150-450) x10^3/uL MPV (7.5-11.0) fL Gran % (36.0-66.0) % Immature Gran % (Auto) (0.00-0.4) % Nucleat RBC Rel Count (0.00-0.1) % Eos # (Auto) (0-0.5) x10^3/uL Immature Gran # (Auto) (0.00-0.03) x10^3u/L Absolute Lymphs (auto) (1.0-4.6) x10^3/uL Absolute Monos (auto) (0.0-1.3) x10^3/uL Absolute Nucleated RBC (0.00-0.01) x10^3u/L Lymphocytes % (24.0-44.0) % Monocytes % (0.0-12.0) % Eosinophils % (0.00-5.0) % Basophils % (0.0-0.4) % Absolute Granulocytes (1.4-6.9) x10^3/uL Basophils # (0-0.4) x10^3/uL D-Dimer (0.0-0.50) mg/L Sodium (137-145) mmol/L Potassium (3.5-5.1) mmol/L Chloride (98-107) mmol/L Carbon Dioxide (22-30) mmol/L Anion Gap (5-15) MEQ/L BUN (7-17) mg/dL Creatinine (0.52-1.04) mg/dL Estimated GFR ML/MIN Glucose (74-106) mg/dL Hemoglobin A1c (4.5-6.0) % Calcium (8.4-10.2) mg/dL Magnesium (1.6-2.3) mg/dL Total Bilirubin (0.2-1.3) mg/dL AST (14-36) U/L ALT (0-35) U/L Alkaline Phosphatase (38-126) U/L Troponin I < 0.012 (0.000-0.034) ng/mL Serum Total Protein (6.3-8.2) g/dL Albumin (3.5-5.0) g/dL Triglycerides (30-150) mg/dL Cholesterol (50-200) mg/dL LDL Cholesterol (30-100) mg/dL HDL Cholesterol (40-60) mg/dL Heart Disease Risk Ratio Free T4 0.82 (0.78-2.19) ng/dL TSH 3rd Generation 0.211 L (0.47-4.68) mIU/L Influenza Type A Ag (NEGATIVE) Influenza Type B Ag (NEGATIVE) RSV (PCR) (NEGATIVE) SARS-CoV-2 (PCR) (NEGATIVE) Radiology Exams: Radiology Procedures Category Date Time Status CHEST 1 VIEW (PORTABLE) Stat Exams 10/29/23 12:21 Completed CTA CHEST W AND/OR WO [CT] Stat Exams 10/29/23 15:54 Completed ECHO W/2D AND DOPPLER [US] Routine Exams 10/29/23 13:57 Taken Assessment/Plan (1) RSV (acute bronchiolitis due to respiratory syncytial virus) Current Visit: Yes Status: Acute Assessment & Plan: -supportive therapies including anti-tussives, duonebs, supplemental oxygen for goal spo2 >92% (2) Chest pain Current Visit: Yes Status: Acute Assessment & Plan: --Cardiology consult unavailable, will consider transfer if appropriate, patient of Dr. Ortiz -Cardiac workup op pending for aortic insufficiency/aortic aneurysm per pt -2 gm Na diet -CXR demonstrates no acute cardiopulmonary disease -start ASA and NTG sublingual PRN -serial troponin and ECG -Echo in am -CBC, CMP, Mg, Phos, lipid panel, HgbA1c in am -continue appropriate baseline home medications -DVT prophylaxis-Lovenox 40 mg SQ daily Code(s): R07.9 - CHEST PAIN, UNSPECIFIED (3) Graves disease Current Visit: Yes Status: Acute Assessment & Plan: -Continue home medications -TSH Code(s): E05.00 - THYROTOXICOSIS W DIFFUSE GOITER W/O THYROTOXIC CRISIS (4) Migraines Current Visit: Yes Status: Acute Assessment & Plan: -noted, continue home medications Code(s): G43.909 - MIGRAINE, UNSP, NOT INTRACTABLE, WITHOUT STATUS MIGRAINOSUS (5) Hypertension Current Visit: Yes Status: Acute Assessment & Plan: -No prior history, add hydralazine for sbp >180 DBP > 100 Code(s): I10 - ESSENTIAL (PRIMARY) HYPERTENSION (6) Seizure disorder Current Visit: Yes Status: Acute Assessment & Plan: -Noted, adds complexity[facility], will continue current home meds Code(s): G40.909 - EPILEPSY, UNSP, NOT INTRACTABLE, WITHOUT STATUS EPILEPTICUS (2) Chest pain Current Visit: Yes Status: Acute Code(s): R07.9 - CHEST PAIN, UNSPECIFIED (3) Graves disease Current Visit: Yes Status: Acute Code(s): E05.00 - THYROTOXICOSIS W DIFFUSE GOITER W/O THYROTOXIC CRISIS (4) Migraines Current Visit: Yes Status: Acute Code(s): G43.909 - MIGRAINE, UNSP, NOT INTRACTABLE, WITHOUT STATUS MIGRAINOSUS (5) Hypertension Current Visit: Yes Status: Acute Code(s): I10 - ESSENTIAL (PRIMARY) HYPERTENSION (6) Seizure disorder Current Visit: Yes Status: Acute Code(s): G40.909 - EPILEPSY, UNSP, NOT INTRACTABLE, WITHOUT STATUS EPILEPTICUS
[2023-10-30] MEDS ORDERED: LIOTHYRONINE SODIUM 25 MCG PO SCH (06:00)
[2023-10-30] MEDS ORDERED: SYNTHROID 75 MCG PO SCH (06:00)
[2023-10-30] MEDS: NON-FORMULARY ITEM PO SCH ×2 (06:25→06:41)
[2023-10-30] MEDS ORDERED: PATIENT OWN MEDICATION PO PRN (07:35)
[2023-10-30] MEDS ORDERED: PATIENT OWN MEDICATION PO SCH ×2 (08:00→10:00)
[2023-10-30 08:34] VITALS: RESP 16
[2023-10-30] MEDS: ENOXAPARIN SODIUM SQ SCH (09:23)
[2023-10-30] MEDS: Protonix 40MG Tablet PO SCH (09:23)
[2023-10-30] MEDS: Robaxin PO SCH (09:25)
[2023-10-30] MEDS ORDERED: HYDROCORTISONE PO SCH ×2 (10:00→13:00)
[2023-10-30] MEDS ORDERED: NON-FORMULARY ITEM (Propranolol Hcl [Propranolol Hcl Er] 60 MG Cap.Sa.24h) PO SCH (10:00)
[2023-10-30] MEDS ORDERED: Cymbalta 30 MG Capsule PO SCH (10:00)
[2023-10-30] MEDS ORDERED: Mucinex 600MG ER Tabs PO SCH (10:00)
[2023-10-30] MEDS ORDERED: MAG-OX 400 PO SCH (10:00)
--- NOTE | 2023-10-30 12:11 | PCM.DS ---
Discharge Summary Date of Admission: 10/29/23 13:39 Date of Discharge: 10/30/23 Admitting Physician: SASHA LIVE MD Primary Care Provider: VIGNESH BONE Allergies Allergies atorvastatin [From Lipitor] Allergy (Verified 10/29/23 18:52) doxycycline Allergy (Verified 10/29/23 18:52) Hospital Summary - Hospital Course Hospital Course: is a 63 year old female with a pmhx of adrenal insufficiency, aortic aneurysm, aortic insufficiency (workup pending, echo scheduled for 10/31/23), migraines, seizures, DDD, OA, graves disease, lyme disease, and EMMETT who presented to ED 10/29/23 with complaints of chest pain and pressure. She reports that the pain started approximately six days ago. Pain is substernal with radiation to the left shoulder region last evening but not today. The pain has been intermittent over the past six days. She states the pain was constant last night but has been intermittent over the past six days normally lasting about 20 mins each episode. Prior to arrival pain was about 8/10, on arrival 5/10 and du ring interview pain has resolved. She describes the pain as pressure-like in characteristic, with no aggravating/relieving factors. She does report that she has been having flu-like symptoms since 10/26/23 with coughing, wheezing, chest tightness, sweats/chills. She feels that her coughing may have exacerbated her chest pain. Upon presentation, patient hypertensive with bp 194/80, otherwise vitals unremarkable. CXR with no cardiopulmonary processes, CTA chest with no acute findings. EKG NS with no ST elevation/deviations. Lab findings showing positive RSV, otherwise unremarkable. Ddimer is normal. Initial troponin is normal. Aspirin, nitro, and zofran given in ED. During hospital course patient admitted with atypical chest pain. She has no history of CAD but has history of aortic aneurysm with aortic insufficieny. Risk factors include HTN, HLD and positive family history. Exam is unremarkable. Repeat EKG and troponin are negative.She has an upcoming appointment with Cardiology to discuss echo findings and any further treatment needed. TSH levels were low during stay, patient states PCP aware and already managing. Advised close follow up. She has been diagnosed with RSV but has required no oxygen. She is having some wheezing still. Will send her home on prednisone burst. Discharge Note New Diagnosis: RSV/CP New Medications: Prednisone/ASA Follow Up: PCP/Cardiology Results pending: ECHO Latest Assessment & Plan (1) RSV (acute bronchiolitis due to respiratory syncytial virus) Current Visit: Yes Status: Acute Assessment & Plan: -supportive therapies including anti-tussives, duonebs, supplemental oxygen for goal spo2 >92% (2) Chest pain Current Visit: Yes Status: Acute Assessment & Plan: --Cardiology consult unavailable, will consider transfer if appropriate, patient of Dr. Ortiz -Cardiac workup op pending for aortic insufficiency/aortic aneurysm per pt -2 gm Na diet -CXR demonstrates no acute cardiopulmonary disease -start ASA and NTG sublingual PRN -serial troponin and ECG -Echo in am -CBC, CMP, Mg, Phos, lipid panel, HgbA1c in am -continue appropriate baseline home medications -DVT prophylaxis-Lovenox 40 mg SQ daily Code(s): R07.9 - CHEST PAIN, UNSPECIFIED (3) Graves disease Current Visit: Yes Status: Acute Assessment & Plan: -Continue home medications -TSH Code(s): E05.00 - THYROTOXICOSIS W DIFFUSE GOITER W/O THYROTOXIC CRISIS (4) Migraines Current Visit: Yes Status: Acute Assessment & Plan: -noted, continue home medications Code(s): G43.909 - MIGRAINE, UNSP, NOT INTRACTABLE, WITHOUT STATUS MIGRAINOSUS (5) Hypertension Current Visit: Yes Status: Acute Assessment & Plan: -No prior history, add hydralazine for sbp >180 DBP > 100 Code(s): I10 - ESSENTIAL (PRIMARY) HYPERTENSION (6) Seizure disorder Current Visit: Yes Status: Acute Assessment & Plan: -Noted, adds complexity, sees Dr. [facility]ano[facility] [facility] on OP basis, will continue current home meds Code(s): G40.909 - EPILEPSY, UNSP, NOT INTRACTABLE, WITHOUT STATUS EPILEPTICUS I spent 35 minutes [id number] with the patient on the day of discharge performing discharge exam, discussing hospital stay and discharge instructions with patient and caregivers, preparation of discharge records, prescriptions & referral forms and addressing any questions/concerns the patient had as documented above. - Vitals & Intake/Output Vital Signs: Vital Signs Temperature 98.7 F 10/30/23 08:00 Pulse Rate 99 H 10/30/23 08:00 Respiratory Rate 16 10/30/23 08:00 Blood Pressure 156/91 10/30/23 08:00 O2 Sat by Pulse Oximetry 95 10/30/23 08:00 Intake & Output: Intake & Output 10/28/23 10/29/23 10/30/23 10/31/23 11:59 11:59 11:59 11:59 Intake Total 480 Balance 480 Weight 94.347 kg 94.4 kg - Lab Result Diagrams: 10/30/23 04:05 10/30/23 04:05 Lab Results-Last 24 Hrs: Lab Results-Last 24 Hours 10/29/23 10/29/23 10/29/23 Range/Units 10:30 11:55 13:55 WBC (4.0-10.5) x10^3/uL RBC (4.1-5.4) x10^6/uL Hgb (12.0-16.0) g/dL Hct (35-47) % MCV (78-100) fL MCH (26-32) pg MCHC (32-36) g/dL RDW (11.5-14.0) % Plt Count (150-450) x10^3/uL MPV (7.5-11.0) fL Sodium (137-145) mmol/L Potassium (3.5-5.1) mmol/L Chloride (98-107) mmol/L Carbon Dioxide (22-30) mmol/L Anion Gap (5-15) MEQ/L BUN (7-17) mg/dL Creatinine (0.52-1.04) mg/dL Estimated GFR ML/MIN Glucose (74-106) mg/dL Hemoglobin A1c 5.67 (4.5-6.0) % Calcium (8.4-10.2) mg/dL Magnesium 2.2 (1.6-2.3) mg/dL Total Bilirubin (0.2-1.3) mg/dL AST (14-36) U/L ALT (0-35) U/L Alkaline Phosphatase (38-126) U/L Troponin I (0.000-0.034) ng/mL Serum Total Protein (6.3-8.2) g/dL Albumin (3.5-5.0) g/dL Triglycerides (30-150) mg/dL Cholesterol (50-200) mg/dL LDL Cholesterol (30-100) mg/dL HDL Cholesterol (40-60) mg/dL Heart Disease Risk Ratio Free T4 (0.78-2.19) ng/dL TSH 3rd Generation 0.043 L (0.47-4.68) mIU/L Influenza Type A Ag NEGATIVE (NEGATIVE) Influenza Type B Ag NEGATIVE (NEGATIVE) RSV (PCR) POSITIVE (NEGATIVE) SARS-CoV-2 (PCR) NEGATIVE (NEGATIVE) 10/29/23 10/29/23 10/29/23 Range/Units 14:00 19:15 Unknown WBC (4.0-10.5) x10^3/uL RBC (4.1-5.4) x10^6/uL Hgb (12.0-16.0) g/dL Hct (35-47) % MCV (78-100) fL MCH (26-32) pg MCHC (32-36) g/dL RDW (11.5-14.0) % Plt Count (150-450) x10^3/uL MPV (7.5-11.0) fL Sodium (137-145) mmol/L Potassium (3.5-5.1) mmol/L Chloride (98-107) mmol/L Carbon Dioxide (22-30) mmol/L Anion Gap (5-15) MEQ/L BUN (7-17) mg/dL Creatinine (0.52-1.04) mg/dL Estimated GFR ML/MIN Glucose (74-106) mg/dL Hemoglobin A1c (4.5-6.0) % Calcium (8.4-10.2) mg/dL Magnesium (1.6-2.3) mg/dL Total Bilirubin (0.2-1.3) mg/dL AST (14-36) U/L ALT (0-35) U/L Alkaline Phosphatase (38-126) U/L Troponin I < 0.012 < 0.012 (0.000-0.034) ng/mL Serum Total Protein (6.3-8.2) g/dL Albumin (3.5-5.0) g/dL Triglycerides 184 H (30-150) mg/dL Cholesterol 232 H (50-200) mg/dL LDL Cholesterol 133 H (30-100) mg/dL HDL Cholesterol 61 H (40-60) mg/dL Heart Disease Risk Ratio 3.8 Free T4 (0.78-2.19) ng/dL TSH 3rd Generation (0.47-4.68) mIU/L Influenza Type A Ag (NEGATIVE) Influenza Type B Ag (NEGATIVE) RSV (PCR) (NEGATIVE) SARS-CoV-2 (PCR) (NEGATIVE) 10/30/23 10/30/23 10/30/23 Range/Units 04:05 04:05 04:05 WBC 4.0 (4.0-10.5) x10^3/uL RBC 4.70 (4.1-5.4) x10^6/uL Hgb 13.6 (12.0-16.0) g/dL Hct 42.0 (35-47) % MCV 89.4 (78-100) fL MCH 28.9 (26-32) pg MCHC 32.4 (32-36) g/dL RDW 12.7 (11.5-14.0) % Plt Count 116 L (150-450) x10^3/uL MPV 12.4 H (7.5-11.0) fL Sodium 136 L (137-145) mmol/L Potassium 4.0 (3.5-5.1) mmol/L Chloride 105 (98-107) mmol/L Carbon Dioxide 27 (22-30) mmol/L Anion Gap 8.7 (5-15) MEQ/L BUN 11 (7-17) mg/dL Creatinine 0.70 (0.52-1.04) mg/dL Estimated GFR 98.3 ML/MIN Glucose 102 (74-106) mg/dL Hemoglobin A1c (4.5-6.0) % Calcium 9.0 (8.4-10.2) mg/dL Magnesium 2.2 (1.6-2.3) mg/dL Total Bilirubin 0.50 (0.2-1.3) mg/dL AST 27 (14-36) U/L ALT 27 (0-35) U/L Alkaline Phosphatase 124 (38-126) U/L Troponin I < 0.012 (0.000-0.034) ng/mL Serum Total Protein 6.9 (6.3-8.2) g/dL Albumin 3.9 (3.5-5.0) g/dL Triglycerides (30-150) mg/dL Cholesterol (50-200) mg/dL LDL Cholesterol (30-100) mg/dL HDL Cholesterol (40-60) mg/dL Heart Disease Risk Ratio Free T4 (0.78-2.19) ng/dL TSH 3rd Generation (0.47-4.68) mIU/L Influenza Type A Ag (NEGATIVE) Influenza Type B Ag (NEGATIVE) RSV (PCR) (NEGATIVE) SARS-CoV-2 (PCR) (NEGATIVE) 10/30/23 10/30/23 Range/Units 04:05 04:05 WBC (4.0-10.5) x10^3/uL RBC (4.1-5.4) x10^6/uL Hgb (12.0-16.0) g/dL Hct (35-47) % MCV (78-100) fL MCH (26-32) pg MCHC (32-36) g/dL RDW (11.5-14.0) % Plt Count (150-450) x10^3/uL MPV (7.5-11.0) fL Sodium (137-145) mmol/L Potassium (3.5-5.1) mmol/L Chloride (98-107) mmol/L Carbon Dioxide (22-30) mmol/L Anion Gap (5-15) MEQ/L BUN (7-17) mg/dL Creatinine (0.52-1.04) mg/dL Estimated GFR ML/MIN Glucose (74-106) mg/dL Hemoglobin A1c (4.5-6.0) % Calcium (8.4-10.2) mg/dL Magnesium (1.6-2.3) mg/dL Total Bilirubin (0.2-1.3) mg/dL AST (14-36) U/L ALT (0-35) U/L Alkaline Phosphatase (38-126) U/L Troponin I (0.000-0.034) ng/mL Serum Total Protein (6.3-8.2) g/dL Albumin (3.5-5.0) g/dL Triglycerides (30-150) mg/dL Cholesterol (50-200) mg/dL LDL Cholesterol (30-100) mg/dL HDL Cholesterol (40-60) mg/dL Heart Disease Risk Ratio Free T4 0.82 (0.78-2.19) ng/dL TSH 3rd Generation 0.211 L (0.47-4.68) mIU/L Influenza Type A Ag (NEGATIVE) Influenza Type B Ag (NEGATIVE) RSV (PCR) (NEGATIVE) SARS-CoV-2 (PCR) (NEGATIVE) - Radiology Exams Ordered Rad Exams-Entire Visit: Radiology Procedures Category Date Time Status CHEST 1 VIEW (PORTABLE) Stat Exams 10/29/23 12:21 Completed CTA CHEST W AND/OR WO [CT] Stat Exams 10/29/23 15:54 Completed ECHO W/2D AND DOPPLER [US] Routine Exams 10/29/23 13:57 Taken - Procedures and Test Procedures and Tests throughout Hospitalization: Therapy Orders & Screens 10/29/23 13:56 EKG REPEAT IN AM Comment: Diagnosis: Chest pain/ACS 10/29/23 14:30 Respiratory Therapy Consult ROUTINE Comment: Reason For Exam: Diagnosis: Chest pain/ACS Discharge Exam General Appearance: no apparent distress Neurologic Exam: alert, oriented x 3, cooperative Eye Exam: PERRL Ears, Nose, Throat Exam: normal ENT inspection Neck Exam: normal inspection Respiratory Exam: wheezing Cardiovascular Exam: regular rate/rhythm, normal heart sounds Gastrointestinal/Abdomen Exam: soft, normal bowel sounds Pelvic Exam: deferred Rectal Exam: deferred Back Exam: normal inspection Extremity Exam: normal inspection Skin Exam: normal color Final Diagnosis/Problem List - Final Discharge Diagnosis/Problem (1) RSV (acute bronchiolitis due to respiratory syncytial virus) Current Visit: Yes Status: Acute (2) Chest pain Current Visit: Yes Status: Acute Code(s): R07.9 - CHEST PAIN, UNSPECIFIED (3) Graves disease Current Visit: Yes Status: Acute Code(s): E05.00 - THYROTOXICOSIS W DIFFUSE GOITER W/O THYROTOXIC CRISIS (4) Migraines Current Visit: Yes Status: Acute Code(s): G43.909 - MIGRAINE, UNSP, NOT INTRACTABLE, WITHOUT STATUS MIGRAINOSUS (5) Hypertension Current Visit: Yes Status: Acute Code(s): I10 - ESSENTIAL (PRIMARY) HYPERTENSION (6) Seizure disorder Current Visit: Yes Status: Acute Code(s): G40.909 - EPILEPSY, UNSP, NOT INTRACTABLE, WITHOUT STATUS EPILEPTICUS - Discharge Disposition: Home, Self-Care Condition: Stable Prescriptions: New Aspirin 81 gm Chew [Baby Aspirin 81 mg Chew] 81 mg PO DAILY 30 Days #30 tab.chew Benzonatate 100 mg PO TIDPRN 30 Days #30 cap Prednisone 20 mg [Deltasone 20 mg] 20 mg PO BID 5 Days #10 tablet Continue levETIRAcetam [Levetiracetam] 1,000 mg PO HS Onabotulinumtoxina [Botox] 100 unit IJ UD methocarbamoL [Methocarbamol] 750 mg PO BID Lisinopril 5 mg [Zestril 5 MG] 5 mg PO HS Solriamfetol HCl [Sunosi] 150 mg PO DAILY Temazepam 30 mg PO HS Hydrocortisone [Cortef] 5 mg PO UD Oxcarbazepine [Oxtellar Xr] 600 mg PO HS Omeprazole 40 mg PO BID Rimegepant Sulfate [Nurtec Odt] 75 mg PO DAILY PRN PRN PRN Reason: migraine Levothyroxine Sodium 75 mcg PO 0600 Liothyronine Sodium 25 mcg PO 0600 Celecoxib 200 mg PO BID Propranolol HCl [Propranolol HCl ER] 60 mg PO DAILY Colesevelam HCl 1,250 mg PO BID Duloxetine HCl 30 mg [Cymbalta 30 MG Capsule] 30 mg PO DAILY Magnesium 1,000 mg PO BID Instructions: Chest Pain (DC), Respiratory Syncytial Virus, Adult (DC) Follow up with: VIGNESH BONE [Primary Care Provider] -
[2023-10-30 13:06] VITALS: BP 117/75; PULSE 92; TEMP 98.2; O2SAT 94
[2023-10-31] MEDS ORDERED: PATIENT OWN MEDICATION PO SCH (06:00)
== END 2023-10-30 13:20 | disposition home or self-care (01) ==
LOC: ED 09:55 → MED SURG 13:39
PROVIDERS: ADMIT Internal Medicine; ATTEND Internal Medicine
DX: B97.4 Respiratory syncytial virus as the cause of diseases classified elsewhere (principal); R07.9 Chest pain, unspecified; E05.00 Thyrotoxicosis with diffuse goiter without thyrotoxic crisis or storm; G43.909 Migraine, unspecified, not intractable, without status migrainosus; I10 Essential (primary) hypertension; G40.909 Epilepsy, unspecified, not intractable, without status epilepticus; Z79.899 Other long term (current) drug therapy; Z20.828 Contact with and (suspected) exposure to other viral communicable diseases; Z86.79 Personal history of other diseases of the circulatory system; E78.5 Hyperlipidemia, unspecified
CPT/HCPCS: 0241U; 36000; 36415; 71045; 71275; 80053; 80061; 83036; 83721; 83735; 84439; 84443; 84484; 85025; 85027; 85379; 93005; 93041; 93268; 93306; 94760; 94762; 96374; 99285; G0378; Q3014; J1650; J2405; A9270-GY

== ENCOUNTER 2025-09-11 13:17 | Emergency (ER) | payer MEDICARE ==
[2025-09-11 13:48] VITALS: TEMP 98.6
[2025-09-11 14:10] LABS: BASOPHIL % 0.3 % (0.1-1.2); Basophil (Absolute #) 0.02 x10^3/uL (0.01-0.08); Eosinophil (Absolute #) 0.05 x10^3/uL (0.04-0.36); Hematocrit 35.8 % (34.1-44.9); Hemoglobin 12.1 g/dL (11.2-15.7); IMMATURE GRAN # 0.02 x10^3u/L (0.001-0.031); IMMATURE GRAN % 0.3 % (0.001-0.429); Lymphocyte (Absolute #) 1.63 x10^3/uL (1.18-3.74); Mean Corpuscular Hemoglobin 30.1 pg (25.6-32.2); Mean Corpuscular Hgb Concent. 33.8 g/dL (32.2-35.5); Monocyte (Absolute #) 0.47 x10^3/uL (0.24-0.86); NUCLEATED RBC # 0.00 x10^3u/L (0.00-0.012); NUCLEATED RBC % 0.0 % (0.00-0.2); Platelet Count 144 x10^3/uL (182-369); Red Blood Count 4.02 x10^6/uL (3.93-5.22); White Blood Count 6.3 x10^3/uL (3.98-10.04)
[2025-09-11 14:23] LABS: Calcium 9.0 mg/dL (8.4-10.2); Carbon Dioxide 22.0 mmol/L (22-30); Creatinine 1 0.64 mg/dL (0.52-1.04); EST GLOMERULAR FILTRATION RATE 99.2 ML/MIN; Glucose 111.0 mg/dL (74-106); INR 0.9 (0.8-3.0); PROTIME 10.1 SECONDS (9.4-12.5); Potassium 3.8 mmol/L (3.5-5.1); SGOT/AST 32.0 U/L (14-36); SGPT/ALT 32.0 U/L (0-35); Total Protein 7.3 g/dL (6.3-8.2)
[2025-09-11 14:47] LABS: ABO TYPING O; RH TYPING POSITIVE
--- NOTE | 2025-09-11 16:30 | XRAY ---
CLINICAL HISTORY: abd hematoma COMPARISON: No prior studies are available for comparison. TECHNIQUE: CT of the abdomen and pelvis was performed with delayed contrast phase using the following protocol: axial images were obtained, with reconstructed coronal and sagittal images. 80 cc isovue intravenous contrast was administered. One of the following dose reduction techniques was utilized for this exam: automated exposure control, adjustment of the mA and/or kV according to patient size, and use of iterative reconstruction. DLP; 2449.34 mGy.cm FINDINGS: Abdomen: Liver: The liver is normal in size, shape, and density. No focal lesions, cysts, or masses are identified. The hepatic vasculature and biliary ducts are unremarkable. Gallbladder and Biliary System: Cholecystectomy clips are present. The common bile duct is normal in caliber, without dilation. Pancreas: The pancreatic head, body, and tail are visualized and appear normal in size and density. No pancreatic masses or calcifications are noted. The pancreatic duct is not dilated. Spleen: The spleen is normal in size, shape, and density. No splenic lesions or masses are identified. Appendix: The appendix could not be traced. There is no evidence of appendiceal abscess or perforation. Kidneys and Adrenal Glands: Both kidneys are normal in size, shape, and position. Cortical thickness is within normal limits. No renal calculi or hydronephrosis are present. The adrenal glands are unremarkable, with no evidence of masses or hyperplasia. Pelvis: Urinary Bladder: The urinary bladder is normal in contour and wall thickness. A basal radiodense stone is seen within the urinary bladder neck, measuring 9 x 7 mm. There is mural vesical thickening with mural calcifications at the bladder neck and proximal urethra. Uterus: The uterus is normal in size and contour. No masses or abnormal thickening are seen. Ovaries: The ovaries are not well visualized, but no gross abnormalities are noted. Vagina: The vagina is normal in contour and wall thickness. Cervix: There is no evidence of mass or abnormal thickening. Peritoneal and Retroperitoneal Structures: No free fluid or abnormal fluid collections are identified within the abdomen or pelvis. No lymphadenopathy is noted. Bowel: The visualized bowel loops are normal in caliber and appearance. No evidence of bowel obstruction or wall thickening is seen. There is uncomplicated sigmoid colon diverticulosis. Bones and Soft Tissues: There is a right lower rectus sheath and anterior extraperitoneal hematoma, measuring 8.2 x 5.2 x 12.5 cm along its maximum transverse, anteroposterior, and craniocaudal dimensions. It indents the right anterior aspect of the urinary bladder and is associated with mild smudging of the pelvic fat planes. No fractures or abnormal masses are identified. There is lumbar spondylosis. There is diffuse osteopenia. IMPRESSION: 1. There is a right lower rectus sheath and anterior extraperitoneal hematoma, measuring 8.2 x 5.2 x 12.5 cm along its maximum transverse, anteroposterior, and craniocaudal dimensions. It indents the right anterior aspect of the urinary bladder and is associated with mild smudging of the pelvic fat planes. Clinical correlation is advised. 2. A radiodense stone is seen within the urinary bladder neck, measuring 9 x 7 mm. Ultrasound correlation is advised. 3. There is mild mural vesical thickening with mural calcifications at the bladder neck and proximal urethra, likely a sequela of chronic cystitis. 4. There is uncomplicated sigmoid colon diverticulosis. Electronically Signed by: Austin Brandt MD. (09/11/2025 16:28:10 EST)
--- NOTE | 2025-09-11 17:16 | ERPHSYRPT ---
- History of Present Illness Patient Subjective Stated Complaint: pt had a heart cath on Friday and was done arterially in the right wrist and venous in the right groin and after they removed the groin cath and held pressure and then when released she immediately began having abdominal pain, pt was sent to [facility] a CT and was told that she did have 2 hematomas but was sent home, pt continues to have abdominal pain and is unable to urinate Triage Nursing Assessment: Pt brought to the ER, hypertensive, rates pain as 4/10 while laying, pulses normal, skin n/w/d, denies chest pain, no difficulty breathing, bruising to the right sided pubic area, pain with palpatation to the LLQ, doesn't appear to be in any distress Physician History: Abdominal pain, patient had a heart cath 4 days ago, she had developed swelling and pain and had a CAT scan done the same day which had revealed a hematoma in the inguinal region as well as in the abdomen, since then her pain is increased and she has had 2 void more frequently, she contacted her citrus peeler and she was sent to the emergency department for evaluation Timing/Duration: day(s) (4) Quality: aching, pressure Abdominal Pain Onset Location: RLQ Pain Radiation: no radiation Severity of Pain-Max: moderate Severity of Pain-Current: moderate Previous symptoms: same symptoms as today Body Map: 1 - area of pain Allergies/Adverse Reactions: atorvastatin [From Lipitor] Allergy (Verified 09/11/25 13:48) doxycycline Allergy (Verified 09/11/25 13:48) Home Medications: Celecoxib 200 mg PO BID 10/29/23 [History] Colesevelam HCl 1,250 mg PO BID 10/29/23 [History] Duloxetine HCl 30 mg [Cymbalta 30 MG Capsule] 30 mg PO DAILY 10/29/23 [History] Hydrocortisone [Cortef] 2.5 mg PO DAILY 10/29/23 [History] Levothyroxine Sodium 100 mcg PO 0600 10/29/23 [History] Liothyronine Sodium 20 mcg PO 0600 10/29/23 [History] Lisinopril 5 mg [Zestril 5 MG] 5 mg PO HS 10/29/23 [History] Magnesium 400 mg PO DAILY 10/29/23 [History] OXcarbazepine [Oxtellar Xr] 300 mg PO BID 10/29/23 [History] Omeprazole 40 mg PO BID 10/29/23 [History] Onabotulinumtoxina [Botox] 100 unit IJ UD 10/29/23 [History] Propranolol HCl [Propranolol HCl ER] 60 mg PO BID 10/29/23 [History] Rimegepant Sulfate [Nurtec Odt] 75 mg PO DAILY PRN PRN 10/29/23 [History] Solriamfetol HCl [Sunosi] 150 mg PO DAILY 10/29/23 [History] Temazepam 30 mg PO HS 10/29/23 [History] methocarbamoL [Methocarbamol] 750 mg PO BID 10/29/23 [History] Olopatadine HCl 1 drop OP QAM 09/11/25 [History] levETIRAcetam [Levetiracetam] 1,000 mg PO BID 09/11/25 [History] Hx Influenza Vaccination/Date Given: No Hx Pneumococcal Vaccination/Date Given: No Travel Risk - International Travel Have you traveled outside of the country in past 3 weeks: No - Emerging Infectious Disease Are you exhibiting symptoms associated with any current EIDs: No - Past Medical History Pertinent Past Medical History: Yes Neurological History: Migraines, Seizures ENT History: No Pertinent History Cardiac History: Other Respiratory History: Sleep Apnea Endocrine Medical History: Adrenal Insufficiency, Other Musculoskeletal History: Degenerative Disk Disease, Fractures, Osteoarthritis GI Medical History: Other History: No Pertinent History Psycho-Social History: No Pertinent History Female Reproductive Disorders: No Pertinent History Other Medical History: 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 gall bladder removed 2020. adrenal insufficiency, hx of bladder sx, Right Carpal tunnel decompression, Left thumb tendon release., graves disease, lyme disease, aortic insufficiency, fall BLE fractures, mast cell activation - Past Surgical History Past Surgical History: Yes Neuro Surgical History: No Pertinent History Cardiac: No Pertinent History Respiratory: No Pertinent History Gastrointestinal: Cholecystectomy Genitourinary: Other Musculoskeletal: Orthopedic Surgery Female Surgical History: No Pertinent History Other Surgical History: ulnar nerve/carpal tunnel/trigger finger release, 2 bladder lifts, C4-C7 Spine fusion, BLE fractures d/t fall - Social History Smoking Status: Never smoker Exposure to second hand smoke: No Drug Use: none - Social Determinants of Health Will the patient participate in the screening: Yes Do you worry about a steady place to live?: No Do you have any problems with any of the following?: No known problems In the past 12 months,have you had to go without utilities?: No Transportation Issues: No Has anyone in your support network made you feel unsafe?: No Have you or anyone in your house had to go w/o enough food: No - Nursing Vital Signs Nursing Vital Signs: Initial Vital Signs Temperature 98.6 F 09/11/25 13:26 Pulse Rate 81 09/11/25 13:26 Blood Pressure 184/82 09/11/25 13:26 O2 Sat by Pulse Oximetry 98 09/11/25 13:26 Pain Scale Pain Intensity 4 - Physical Exam General Appearance: no apparent distress, alert, obese Eye Exam: PERRL/EOMI, eyes nml inspection Ears, Nose, Throat Exam: normal ENT inspection, pharynx normal, moist mucous membranes Neck Exam: normal inspection, non-tender, supple, full range of motion Respiratory Exam: normal breath sounds, lungs clear, No respiratory distress Cardiovascular Exam: regular rate/rhythm, normal heart sounds Gastrointestinal/Abdomen Exam: soft, tenderness (RLQ), guarding (RLQ), ecchymosis, No mass Pelvic Exam: other (Inguinal hematoma) Back Exam: normal inspection, normal range of motion, No CVA tenderness, No vertebral tenderness Extremity Exam: normal inspection, normal range of motion, pelvis stable Neurologic Exam: alert, oriented x 3, cooperative, normal mood/affect, nml cerebellar function, sensation nml, No motor deficits Skin Exam: normal color, warm, dry SpO2 Interpretation: normal SpO2: 94 Ordered Tests: Active Orders 24 hr Category Date Time Status IV Insertion STAT Care 09/11/25 13:37 Active ABDOMEN AND PELVIS W CONTRAST [CT] Stat Exams 09/11/25 13:38 Completed CBC W DIFF Stat Lab 09/11/25 13:52 Completed CMP Stat Lab 09/11/25 13:52 Completed PROTIME WITH INR Stat Lab 09/11/25 13:52 Completed Medication Summary Discontinued Medications Generic Name Dose Route Start Last Admin Trade Name Freq PRN Reason Stop Dose Admin Sodium Chloride 500 mls @ 500 mls/hr 09/11/25 13:39 09/11/25 15:27 Sodium Chloride 0.9% 500 Ml IV 09/11/25 14:38 Infused .Q1H ONE Infusion Sodium Chloride Confirm 09/11/25 14:13 Sodium Chloride 0.9% 500 Ml Administered 09/11/25 14:14 Dose 500 mls @ ud IV .STK-MED ONE Lab/Rad Data: Laboratory Result Diagrams 09/11/25 13:52 09/11/25 13:52 Laboratory Results 09/11/25 09/11/25 09/11/25 Range/Units 13:52 13:52 13:52 WBC (3.98-10.04) x10^3/uL RBC (3.93-5.22) x10^6/uL Hgb (11.2-15.7) g/dL Hct (34.1-44.9) % MCV (79.4-94.8) fL MCH (25.6-32.2) pg MCHC (32.2-35.5) g/dL RDW (11.7-14.4) % Plt Count (182-369) x10^3/uL MPV (9.4-12.3) fL Gran % (34.0-71.1) % Immature Gran % (Auto) (0.001-0.429) % Nucleat RBC Rel Count (0.00-0.2) % Eos # (Auto) (0.04-0.36) x10^3/uL Immature Gran # (Auto) (0.001-0.031) x10^3u/L Absolute Lymphs (auto) (1.18-3.74) x10^3/uL Absolute Monos (auto) (0.24-0.86) x10^3/uL Absolute Nucleated RBC (0.00-0.012) x10^3u/L Lymphocytes % (19.3-51.7) % Monocytes % (4.7-12.5) % Eosinophils % (0.7-5.8) % Basophils % (0.1-1.2) % Absolute Granulocytes (1.56-6.13) x10^3/uL Basophils # (0.01-0.08) x10^3/uL PT 10.1 (9.4-12.5) SECONDS INR 0.90 (0.8-3.0) Sodium 137 (135-145) mmol/L Potassium 3.8 (3.5-5.1) mmol/L Chloride 107 (98-107) mmol/L Carbon Dioxide 22 (22-30) mmol/L Anion Gap 11.6 (5-15) MEQ/L BUN 16 (7-17) mg/dL Creatinine 0.64 (0.52-1.04) mg/dL Estimated GFR 99.2 ML/MIN Glucose 111 H (74-106) mg/dL Calcium 9.0 (8.4-10.2) mg/dL Total Bilirubin 0.70 (0.2-1.3) mg/dL AST 32 (14-36) U/L ALT 32 (0-35) U/L Alkaline Phosphatase 117 (38-126) U/L Serum Total Protein 7.3 (6.3-8.2) g/dL Albumin 4.3 (3.5-5.0) g/dL ABO Group O Rh Factor POSITIVE Antibody Screen NEGATIVE (NEGATIVE) 09/11/25 Range/Units 13:52 WBC 6.3 (3.98-10.04) x10^3/uL RBC 4.02 (3.93-5.22) x10^6/uL Hgb 12.1 (11.2-15.7) g/dL Hct 35.8 (34.1-44.9) % MCV 89.1 (79.4-94.8) fL MCH 30.1 (25.6-32.2) pg MCHC 33.8 (32.2-35.5) g/dL RDW 11.8 (11.7-14.4) % Plt Count 144 L (182-369) x10^3/uL MPV 12.7 H (9.4-12.3) fL Gran % 65.4 (34.0-71.1) % Immature Gran % (Auto) 0.3 (0.001-0.429) % Nucleat RBC Rel Count 0.0 (0.00-0.2) % Eos # (Auto) 0.05 (0.04-0.36) x10^3/uL Immature Gran # (Auto) 0.02 (0.001-0.031) x10^3u/L Absolute Lymphs (auto) 1.63 (1.18-3.74) x10^3/uL Absolute Monos (auto) 0.47 (0.24-0.86) x10^3/uL Absolute Nucleated RBC 0.00 (0.00-0.012) x10^3u/L Lymphocytes % 25.8 (19.3-51.7) % Monocytes % 7.4 (4.7-12.5) % Eosinophils % 0.8 (0.7-5.8) % Basophils % 0.3 (0.1-1.2) % Absolute Granulocytes 4.14 (1.56-6.13) x10^3/uL Basophils # 0.02 (0.01-0.08) x10^3/uL PT (9.4-12.5) SECONDS INR (0.8-3.0) Sodium (135-145) mmol/L Potassium (3.5-5.1) mmol/L Chloride (98-107) mmol/L Carbon Dioxide (22-30) mmol/L Anion Gap (5-15) MEQ/L BUN (7-17) mg/dL Creatinine (0.52-1.04) mg/dL Estimated GFR ML/MIN Glucose (74-106) mg/dL Calcium (8.4-10.2) mg/dL Total Bilirubin (0.2-1.3) mg/dL AST (14-36) U/L ALT (0-35) U/L Alkaline Phosphatase (38-126) U/L Serum Total Protein (6.3-8.2) g/dL Albumin (3.5-5.0) g/dL ABO Group Rh Factor Antibody Screen (NEGATIVE) - Progress Progress Note: 09/11/25 17:[address], her CAT scan today showed a hematoma measuring 8 x 5 x 12 cm, Friday hematoma measured 8 x 6 x 2 cm; Cardiology at [place] was consulted, they recommended the patient be transferred and admitted to the hospital service with a consult to vascular surgery - Departure Departure Disposition: Transfer Clinical Impression: Rectus sheath hematoma Qualifiers: Encounter type: subsequent encounter Qualified Code(s): S30.11XD - Contusion of abdominal wall, subsequent encounter Condition: Stable Critical Care Time: No Referrals: VIGNESH BONE [Primary Care Provider, UNKNOWN] - Follow up/PCP as directed
[2025-09-11] MEDS ORDERED: PERCOCET TABLET 5/325MG ONE (18:11)
[2025-09-11] MEDS: PERCOCET TABLET 5/325MG PO ONE (18:12)
[2025-09-11] MEDS ORDERED: Hydromorphone 1 mg/ml Injection ONE (19:26)
[2025-09-11] MEDS: Hydromorphone 1 mg/ml Injection IV ONE (19:28)
[2025-09-11 19:38] VITALS: BP 167/72; PULSE 72; RESP 16
[2025-09-11 20:09] VITALS: O2SAT 96
== END 2025-09-11 19:58 | disposition short-term general hospital (02) ==
LOC: ED 13:17
DX: S30.11XA Contusion of abdominal wall, initial encounter (principal); Z79.899 Other long term (current) drug therapy